=== PATIENT | female | born 1975 | race Caucasian/White ===

== ENCOUNTER → 2019-04-21 | Outpatient (CLI) | payer BC ==
--- NOTE | 2019-04-22 14:38 | MM ---
Reason for exam: screening (asymptomatic). Last mammogram was performed 5 years and 10 months ago. History: Family history of premenopausal breast cancer in aunt at age 35. Took hormonal contraceptives for 15 years beginning at age 13. Physical Findings: A clinical breast exam by your physician is recommended on an annual basis and results should be correlated with mammographic findings. MG Screening Mammo w CAD Bilateral CC and MLO view(s) were taken. Prior study comparison: July 02, 2013, bilateral digital screening mammo w/CAD. April 24, 2009, bilateral digital screening mammogram. The breast tissue is heterogeneously dense. This may lower the sensitivity of mammography. No suspicious abnormality. No significant changes when compared with prior studies. ASSESSMENT: Negative, BI-RAD 1 RECOMMENDATION: Routine screening mammogram of both breasts in 1 year.
== END | disposition home or self-care (01) ==
LOC: RADMAMWWP 07:55
PROVIDERS: ATTEND Obstetrics & Gynecology
DX: Z12.31 Encounter for screening mammogram for malignant neoplasm of breast (principal)
CPT/HCPCS: 77067

== ENCOUNTER → 2023-03-13 | Outpatient (CLI) | payer OTHER ==
--- NOTE | 2023-03-15 17:10 | MM ---
Reason for Exam: Screening (asymptomatic). Last mammogram was performed 1 year(s) and 5 month(s) ago. Patient History: Menarche at age 12. First Full-Term at age 25. Premenopausal. Hormonal Contraceptives for 15 years from age 13 until age 28. Maternal aunt had breast cancer, age 35. Risk Values: Harriett 5 year model risk: 0.9%. NCI Lifetime model risk: 9.2%. Prior Study Comparison: 07/02/2013 Bilateral Screening Mammogram, [facility]. 04/21/2019 Bilateral Screening Mammogram, [facility]. 10/18/2021 Bilateral Screening Mammogram, [facility]. Tissue Density: The breast tissue is heterogeneously dense. This may lower the sensitivity of mammography. Findings: Analyzed By CAD. There is no suspicious group of microcalcifications or new suspicious mass in either breast. Overall Assessment: Benign, BI-RAD 2 Management: Screening Mammogram of both breasts in 1 year. . Patient should continue monthly self-breast exams. A clinical breast exam by your physician is recommended on an annual basis. This exam should not preclude additional follow-up of suspicious palpable abnormalities. Note on Harriett scores and lifetime risk: 1. A Harriett score greater than 3% is considered moderate risk. If this is the case, consider specialist referral to assess eligibility for a risk reducing agent. 2. If overall lifetime risk for the development of breast cancer is 20% or higher, the patient may qualify for future screening with alternating mammogram and breast MRI. Electronically signed and approved by: Jamari Holder M.D. Radiologist
== END | disposition home or self-care (01) ==
LOC: RADMAMWWP 16:26
PROVIDERS: ATTEND Obstetrics & Gynecology
DX: Z12.31 Encounter for screening mammogram for malignant neoplasm of breast (principal); Z80.3 Family history of malignant neoplasm of breast
CPT/HCPCS: 77063; 77067

== ENCOUNTER 2023-04-30 06:13 | Day surgery (SDC) | payer OTHER ==
--- NOTE | 2023-04-29 07:43 | P.HPOB ---
History of Present Illness H&P Date: 04/29/23 Chief Complaint: Menorrhagia, uterine fibroids. This patient is a pleasant 47-year-old 3 para 2 female who has known large uterine fibroids that was first diagnosed in the last 2 years. Patient initially went on oral contraceptives for menorrhagia with excellent results. Patient however earlier this year stopped the pill because she was concerned of taking it at her age. Patient's menstrual cycles became very heavy again and long. No intramenstrual bleeding. Patient's had serial ultrasounds that shows multiple fibroids the largest being about 4-5 cm at 1 minute appears to impinge on the uterine cavity. I discussed options with the patient including defi nitive surgery with hysterectomy however she adamantly does not want the surgery. Her mother went through menopause early, therefore she is requesting a trial of an endometrial ablation to see if this can help her bleeding until she goes into menopause. Patient now presents for trial of endometrial ablation. Review of Systems Genitourinary: Reports as per HPI, Reports menorrhagia Menstruation: Reports menses 8 or > days, Reports period heavy Past Medical History Past Medical History: Osteoarthritis (OA) Additional Past Medical History / Comment(s): heavy periods, fibroids. seasonal allergies. autoimmune disease- GET- skin flushes more. History of Any Multi-Drug Resistant Organisms: None Reported Past Surgical History: Section Additional Past Surgical History / Comment(s): D&C, Past Anesthesia/Blood Transfusion Reactions: No Reported Reaction Past Psychological History: No Psychological Hx Reported Smoking Status: Current some day smoker Past Alcohol Use History: None Reported Past Drug Use History: None Reported - Past Family History Father Family Medical History: No Reported History Medications and Allergies Home Medications Medication Instructions Recorded Confirmed Type Acyclovir [Zovirax] 400 mg PO DIRECTED PRN 04/25/23 04/25/23 History Ibuprofen [Motrin Ib] 400 - 600 mg PO DIRECTED PRN 04/25/23 04/25/23 History Unk Airborne Vitamin 1 tab PO DAILY 04/25/23 04/25/23 History Unk Albuterol Inhaler 2 puff INHALATION DIRECTED PRN 04/25/23 04/25/23 History Unk Allergy Relief Otc 1 tab PO DAILY 04/25/23 04/25/23 History Unk Flonas Nasal [place] 1 spray EA NOSTRIL DIRECTED PRN 04/25/23 04/25/23 History Allergies Allergy/AdvReac Type Severity Reaction Status Date / Time cefaclor [From [facility]] Allergy Rash/Hives Verified 04/25/23 17:19 Exam - OBG Physical Exam Abdomen: bowel sounds normal, no diffuse tenderness, no bruit present, no guarding noted, no hepatomegaly, no splenomegaly, no mass Vulva: both: normal Vagina: normal moisture, no discharge Cervix: no lesion, no discharge Uterus: enlarged Results Most recent ultrasound shows a anterior fundal fibroid is 4.5 x 5.3 cm with some distortion of the endometrial cavity. There is also a posterior fundal fibroid that is 3.1 cm. Assessment and Plan Assessment: This is a pleasant 47-year-old 3 para 2 female with refractory menorrhagia, known large uterine fibroids, requesting trial of endometrial ablation for treatment. Plan is hysteroscopy, D&C, and NovaSure endometrial ablation. Patient understands that given that fibroids are impinging on the cavity I may not be able to do the ablation or the effectiveness may be significantly decreased. I also discussed the risks of the surgery including risks of infection, bleeding, possible uterine perforation, and/or thermal injury. All the patient's questions are answered and a written consent is obtained. (1) Menorrhagia Status: Acute Code(s): N92.0 - EXCESSIVE AND FREQUENT MENSTRUATION WITH REGULAR CYCLE SNOMED Code(s): 793003358 (2) Uterine fibroid Status: Acute Code(s): D25.9 - LEIOMYOMA OF UTERUS, UNSPECIFIED SNOMED Code(s): 01013743
[~2023-04-30 06:13] MED LIST: DEXAMETHASONE SOD PHOSPHATE 4 MG/ML 1 ML VIAL IV ONE; LACTATED RINGERS 1,000 ML IV SCH; LIDOCAINE 1% (10MG/ML) FOR IV START INTRADERMA PRN; ONDANSETRON 4 MG/2 ML VIAL IVP ONE; Pre Op ABX Message 1 EACH MISC MISCELLANE ONE
[2023-04-30] MEDS ORDERED: MIDAZOLAM 2 MG/2 ML VIAL IV PRN (07:00)
[2023-04-30] MEDS ORDERED: HYDROmorphone 0.5 MG/0.5 ML SYRINGE IVP PRN (07:00)
[2023-04-30] MEDS ORDERED: MIDAZOLAM 2 MG/2 ML VIAL IVP ONE (07:12)
[2023-04-30] MEDS ORDERED: KETOROLAC 15 MG/ML 1 ML VIAL ONE (07:20)
[2023-04-30] MEDS ORDERED: LIDOCAINE 1% INJ 10MG/ML (20 ML MDV) ONE (07:20)
[2023-04-30] MEDS ORDERED: fentaNYL (PF) 50 MCG/ML 2 ML AMP ONE (07:20)
[2023-04-30] MEDS ORDERED: PROPOFOL 10 MG/ML 20 ML VIAL IV ONE (07:20)
[2023-04-30 07:25] VITALS: RESP 16
--- NOTE | 2023-04-30 07:56 | P.OP ---
Date of Procedure: 04/30/23 Preoperative Diagnosis: #1: Uterine fibroids. #2: Menorrhagia Postoperative Diagnosis: Same Procedure(s) Performed: #1: Hysteroscopy. #2: Dilation and curettage. #3: NovaSure endometrial ablation Anesthesia: MAC Surgeon: Sin Busby Estimated Blood Loss (ml): 10 Urine output (ml): 20 Pathology: other (Uterine curettings) Condition: stable Disposition: PACU Indications for Procedure: Please see dictated H&P for intimate details of this patient's admission. Brief summary this pleasant 47-year-old 3 para 2 female long-standing menorrhagia that initially was treated with hormonal therapy but has been discontinued and is refractory. Patient is requesting trial of NovaSure endometrial ablation for treatment. She has known multiple uterine fibroids. Patient understands this surgery and risks and risks of infection, bleeding, possible uterine perforation, and/or thermal injury. All the patient's questions are answered and a written consent is obtained. Operative Findings: This patient had a normal-appearing endometrial lining however there was impingement of 2 fibroids on the lining. Description of Procedure: This patient is taken to the operating room where she is laid in the supine position. She subsequent goes general anesthesia without incident. An adequate level of anesthesia she's placed in dorsal lithotomy position. She has a vaginal perineal prep and drape. Examination under anesthesia shows an enlarged uterus mid position. A weighted speculum was placed in the posterior vagina. Anterior lip of the cervix is grabbed with an Allis clamp. I do drain her bladder for 20 mL of clear urine. Uterus is then gently sounded to 9.5 cm. Gentle dilation is then done of the endocervix to allow the hysteroscope easily and the uterine cavity. Using saline solution, hysteroscopy is performed. I can visualize most of the cavity and it is somewhat distorted by the impinging fibroids but in general no subsequently mucosal fibroids are noted. With this done the length is measured at 6.5 cm. The hysteroscope was then removed. Cervix is dilated more to allow a small curette easily uterine cavity. A four- quadrant thorough curettage is done for adequate sampling. This completed the NovaSure device is then opened and seated a length of 6.5 cm. It opens up to a width of 4.6 cm. After setting it in place it then passes the cavity integrity test. It is then enabled 164 W setting for 72 seconds. NovaSure device is then removed and appears to be intact. Hysteroscopy is then performed again and the uterine cavity appears to completely ablated up to the endocervix. Excellent results are noted. This completed the procedure is ended. The Allis clamp and weighted speculum were removed. All counts are correct 3. There are no complications. Patient is awakened from anesthesia and taken recovery room satisfactory condition.
[2023-04-30 08:04] VITALS: TEMP 97.9
[2023-04-30 09:02] VITALS: BP 106/67; PULSE 77
== END 2023-04-30 09:25 | disposition home or self-care (01) ==
LOC: OR 06:13
PROVIDERS: ATTEND Obstetrics & Gynecology
DX: N92.0 Excessive and frequent menstruation with regular cycle (principal); D25.9 Leiomyoma of uterus, unspecified; F17.200 Nicotine dependence, unspecified, uncomplicated; M19.90 Unspecified osteoarthritis, unspecified site; Z98.890 Other specified postprocedural states; Z98.891 History of uterine scar from previous surgery; Z88.1 Allergy status to other antibiotic agents; Z79.899 Other long term (current) drug therapy
CPT/HCPCS: 58563; 81025; 88305; J2250; J1100; J2405; J2001; J3010; J1885; J2704

== ENCOUNTER → 2023-09-04 | Outpatient (CLI) | payer OTHER ==
[2023-09-04 16:15] LABS: T4, Free (Free Thyroxine) 1.81 ng/dL (0.80-1.80)
== END | disposition home or self-care (01) ==
LOC: LABWHC1 12:44
PROVIDERS: ATTEND Internal Medicine Endocrinology, Diabetes & Metabolism
DX: E05.90 Thyrotoxicosis, unspecified without thyrotoxic crisis or storm (principal)
CPT/HCPCS: 36415; 84439; 84443; 84445; 84480

== ENCOUNTER → 2023-09-24 | Outpatient (CLI) | payer OTHER ==
--- NOTE | 2023-09-25 11:59 | NM ---
EXAMINATION TYPE: NM thyroid image w uptake DATE OF EXAM: 09/25/2023 COMPARISON: NONE CLINICAL INDICATION: Female, 48 years old with history of E05.90 SUBCLINICAL HYPERTHROIDIMS; TECHNIQUE: Thyroid iodine uptake is calculated and images performed after the oral administration of 298 uCi 1-123 Capsule. FINDINGS: There is normal distribution of activity throughout the gland. A small area of increased up take involving the lower pole left thyroid. Hot nodule in the differential diagnosis. The 4 hour iodi ne uptake is calculated at 6.1% (normal range 8-14%). The 24-hour iodine uptake is calculated at 12.9 % (normal range 15-35%). IMPRESSION: 1. Findings compatible with hypothyroidism. 2. Recommend thyroid ultrasound to exclude a lower pole left thyroid nodule.
== END | disposition home or self-care (01) ==
LOC: RADNMMAIN 08:34
PROVIDERS: ATTEND Internal Medicine Endocrinology, Diabetes & Metabolism
DX: E05.90 Thyrotoxicosis, unspecified without thyrotoxic crisis or storm (principal)
CPT/HCPCS: 78014; A9516

== ENCOUNTER → 2023-10-17 | Outpatient (CLI) | payer OTHER ==
[2023-10-17 18:45] LABS: T4, Free (Free Thyroxine) 1.32 ng/dL (0.80-1.80)
== END | disposition home or self-care (01) ==
LOC: LABWHC1 11:39
PROVIDERS: ATTEND Internal Medicine Endocrinology, Diabetes & Metabolism
DX: E05.00 Thyrotoxicosis with diffuse goiter without thyrotoxic crisis or storm (principal)
CPT/HCPCS: 36415; 84439; 84443; 84445; 84480

== ENCOUNTER → 2023-11-10 | Outpatient (CLI) | payer OTHER ==
--- NOTE | 2023-11-10 11:48 | US ---
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 GLAND SIZE: Right Lobe: 4.8 x 1.3 x 1.7 cm Overall Parenchyma: Very heterogeneous -Limited evaluation for any possible nodules due to hetero geneity, increased color Doppler flow. Left Lobe: 5.0 x 1.4 x 1.5 cm Overall Parenchyma: Very heterogeneous - Limited evaluation for any possible nodules due to heter ogeneity, increased color Doppler flow. Isthmus Thickness: 0.49 cm NODULES RIGHT: # of nodules measured on right: 0 LEFT: # of nodules measured on left: 0 ISTHMUS: # of nodules measured in the isthmus: 0 Bilateral neck scanned, no evidence of lymphadenopathy. IMPRESSION: Heterogenous thyroid gland with increased vascular flow correlate with serum markers for thyroiditis. No discrete nodules.
== END | disposition home or self-care (01) ==
LOC: RADUSWWP 10:59
PROVIDERS: ATTEND Internal Medicine Endocrinology, Diabetes & Metabolism
DX: E07.89 Other specified disorders of thyroid (principal); E05.00 Thyrotoxicosis with diffuse goiter without thyrotoxic crisis or storm
CPT/HCPCS: 76536

== ENCOUNTER → 2023-12-03 | Outpatient (CLI) | payer OTHER ==
[2023-12-03 19:34] LABS: T4, Free (Free Thyroxine) 1.16 ng/dL (0.80-1.80)
== END | disposition home or self-care (01) ==
LOC: LABWHC1 14:46
PROVIDERS: ATTEND Internal Medicine Endocrinology, Diabetes & Metabolism
DX: E05.00 Thyrotoxicosis with diffuse goiter without thyrotoxic crisis or storm (principal)
CPT/HCPCS: 36415; 84439; 84443; 84480

== ENCOUNTER → 2024-01-26 | Outpatient (CLI) | payer OTHER ==
[2024-01-26 16:20] LABS: HCT 40.8 % (37.2-46.3); HGB 13.4 g/dL (12.0-15.0); MCH 29.1 pg (27.0-32.0); MCHC 32.8 g/dL (32.0-37.0); MCV 88.7 FL (80.0-97.0); Mean Platelet Volume 9.7 FL (9.5-12.2); NRBC Per 100 WBC 0 X 10*3/uL (0.00-0.01); Platelet Count 334 X 10*3/uL (140-440); RDW 12.7 % (11.5-14.5)
[2024-01-26 17:55] LABS: ALT 35 U/L (8-44); AST 28 U/L (13-35); Albumin 4.2 g/dL (3.8-4.9); Alkaline Phosphatase 65 U/L (41-126); BUN/Creat Ratio 18.12 Ratio (12.00-20.00); Blood Urea Nitrogen 14.5 mg/dL (9.0-27.0); Calcium 9.3 mg/dL (8.7-10.3); Carbon Dioxide 21.9 mmol/L (21.6-31.8); Chloride 104 mmol/L (96-109); Glucose 97 mg/dL (70-110); Potassium 4.9 mmol/L (3.5-5.5); Sodium 137 mmol/L (135-145); T4, Free (Free Thyroxine) 1.26 ng/dL (0.80-1.80); Total Bilirubin 0.3 mg/dL (0.3-1.2); Total Protein 7.2 g/dL (6.2-8.2)
== END | disposition home or self-care (01) ==
LOC: LABWHC1 10:06
PROVIDERS: ATTEND Internal Medicine Endocrinology, Diabetes & Metabolism
DX: E05.00 Thyrotoxicosis with diffuse goiter without thyrotoxic crisis or storm (principal)
CPT/HCPCS: 36415; 80053; 84439; 84443; 84445; 84480; 85027

== ENCOUNTER → 2024-03-29 | Outpatient (CLI) | payer OTHER ==
[2024-03-29 15:28] LABS: ALT 26 U/L (8-44); AST 20 U/L (13-35); Albumin 4.3 g/dL (3.8-4.9); Albumin/Globulin Ratio 1.43 Ratio (1.60-3.17); Alkaline Phosphatase 59 U/L (41-126); Blood Urea Nitrogen 14.8 mg/dL (9.0-27.0); Calcium 9.1 mg/dL (8.7-10.3); Carbon Dioxide 23.6 mmol/L (21.6-31.8); Chloride 103 mmol/L (96-109); Glucose 90 mg/dL (70-110); Sodium 135 mmol/L (135-145); T4, Free (Free Thyroxine) 0.87 ng/dL (0.80-1.80); Total Bilirubin <0.2 mg/dL (0.3-1.2); Total Protein 7.3 g/dL (6.2-8.2)
== END | disposition home or self-care (01) ==
LOC: LABWHC1 10:22
PROVIDERS: ATTEND Internal Medicine Endocrinology, Diabetes & Metabolism
DX: E05.00 Thyrotoxicosis with diffuse goiter without thyrotoxic crisis or storm (principal)
CPT/HCPCS: 36415; 80053; 84439; 84443; 84480

== ENCOUNTER → 2024-06-16 | Outpatient (CLI) | payer OTHER ==
--- NOTE | 2024-06-20 00:44 | MM ---
Reason for Exam: Screening (asymptomatic). Last mammogram was performed 1 year(s) and 3 month(s) ago. Patient History: Menarche at age 12. First Full-Term at age 25. Premenopausal. Hormonal Contraceptives for 15 years from age 13 until age 28. Maternal aunt had breast cancer, age 35. Last menstrual period: 05/31/2024 Risk Values: Harriett 5 year model risk: 1.0%. NCI Lifetime model risk: 8.9%. Prior Study Comparison: 04/21/2019 Bilateral Screening Mammogram, [facility]. 10/18/2021 Bilateral Screening Mammogram, [facility]. 03/13/2023 Bilateral MG 3D screening mammo w/cad, [facility]. Tissue Density: The breasts are heterogeneously dense, which may obscure small masses. Findings: Analyzed By CAD. The pattern is symmetrical. No suspicious groups of microcalcifications, spiculated or lobular masses, architectural distortion or other secondary signs of malignancy are mammographically apparent. Overall Assessment: Benign, BI-RAD 2 Management: Screening Mammogram of both breasts in 1 year. A negative mammogram report should not preclude additional follow up of suspicious palpable abnormalities. Patient should continue monthly self breast exam. A clinical breast exam by your physician is recommended on an annual basis and results should be correlated with mammographic findings. Note on Harriett scores and lifetime risk: 1. A Harriett score greater than 3% is considered moderate risk. If this is the case, consider specialist referral to assess eligibility for a risk reducing agent. 2. If overall lifetime risk for the development of breast cancer is 20% or higher, the patient may qualify for future screening with alternating mammogram and breast MRI. [facility], , 06/20/2024 12:40 AM. Electronically signed and approved by: Alex Ramirez D.O. Radiologis
== END | disposition home or self-care (01) ==
LOC: RADMAMWWP 14:21
PROVIDERS: ATTEND Obstetrics & Gynecology
DX: Z12.31 Encounter for screening mammogram for malignant neoplasm of breast (principal); Z80.3 Family history of malignant neoplasm of breast; R92.333 Mammographic heterogeneous density, bilateral breasts
CPT/HCPCS: 77063; 77067

== ENCOUNTER → 2024-06-24 | Outpatient (CLI) | payer OTHER ==
[2024-06-25 04:13] LABS: ALT 49 U/L (8-44); AST 46 U/L (13-35); Albumin 4.5 g/dL (3.8-4.9); Albumin/Globulin Ratio 1.45 Ratio (1.60-3.17); Alkaline Phosphatase 57 U/L (41-126); BUN/Creat Ratio 15.11 Ratio (12.00-20.00); Blood Urea Nitrogen 13.6 mg/dL (9.0-27.0); Calcium 9.4 mg/dL (8.7-10.3); Chloride 102 mmol/L (96-109); Globulin 3.1 g/dL (1.6-3.3); Glucose 79 mg/dL (70-110); Sodium 136 mmol/L (135-145); Total Bilirubin 0.3 mg/dL (0.3-1.2); Total Protein 7.6 g/dL (6.2-8.2)
== END | disposition home or self-care (01) ==
LOC: LABWHC1 14:26
PROVIDERS: ATTEND Internal Medicine Endocrinology, Diabetes & Metabolism
DX: E05.00 Thyrotoxicosis with diffuse goiter without thyrotoxic crisis or storm (principal)
CPT/HCPCS: 36415; 80053; 84439; 84443; 84445; 84480